=== PATIENT | female | born 1975 | race African-American/Black ===

== ENCOUNTER 2017-02-17 13:08 | Emergency (ER) | payer OTHER ==
[~2017-02-17 13:08] MED LIST: ABX PO; AMB5 PO; NKDA; PERCOCET1 TA4 PO; STEROID INJECTION IM; [UNRECOGNIZED DRUG - REMARK]
== END 2017-02-17 14:00 | disposition home or self-care (01) ==
LOC: ER 13:08
DX: M54.10 Radiculopathy, site unspecified (principal); F17.200 Nicotine dependence, unspecified, uncomplicated; Z91.018 Allergy to other foods
CPT/HCPCS: 72100; 99283